=== PATIENT | female | born 1930 | race Two or more races ===

== ENCOUNTER 2017-05-13 17:22 | Emergency (ER) | payer MEDICARE, MEDICAID ==
[~2017-05-13] VITALS: Ht 162.6 cm; Wt 56.7 kg
[~2017-05-13 17:22] MED LIST: AMLODIPINE BESYL5 MG PO; AZITHROMYCIN250 MG PO
[2017-05-13 18:28] VITALS: BP 148/68
[2017-05-13] MEDS ORDERED: LIPITOR10 MG ORAL (18:31)
[2017-05-13] MEDS ORDERED: PROSOM2 MG ORAL (18:31)
[2017-05-13] MEDS ORDERED: LISINOPRIL5 MG ORAL (18:31)
--- NOTE | 2017-05-13 18:39 | Emergency Room Report ---
History of Present Illness General Chief Complaint: Diarrhea Source: Family Member Present Illness HPI Patient has a history of diabetes and is care for home by her daughter. Patient develop acute onset of nausea associated with diarrhea and abdominal discomfort over last few days. Patient does not remember eating anything out of the ordinary. Patient has history dementia and apparently consumes grinded coffee beans at times which could be upsetting her stomach. Patient also apparently has foul-smelling urine according to the daughter. The daughter would prefer that the patient not be admitted. No other complaints are noted. Patient denies any chest pain shortness breath fever cough or any nose. No other modifying factors. No other associated signs and symptoms. No other complaints were noted. Allergies: Coded Allergies: PENICILLINS (Verified Allergy, Mild, HIVES, 10/26/10) Patient History Past Medical History: HTN Past Surgical History: none Pertinent Family History: none Social History: Denies: alcohol use, drug use, smoking Last Menstrual Period: N/A Reviewed Nursing Documentation: PMH: Agreed, PSxH: Agreed Nursing Documentation-PMH Hx Hypertension: Yes Review of Systems All Other Systems: negative except mentioned in HPI Physical Exam Vital Signs Date Time Temp Pulse Resp B/P Pulse Ox O2 Delivery O2 Flow Rate FiO2 05/13/17 17:29 98.4 83 16 152/72 95 05/13/17 18:28 Room Air Sp02 EP Interpretation: reviewed, normal General Appearance: normal inspection, well appearing, no apparent distress, alert Head: atraumatic Eyes: bilateral eye normal inspection ENT: normal ENT inspection, hearing grossly normal, normal voice Neck: normal inspection, full range of motion, supple, no bony tend Respiratory: normal inspection, lungs clear, normal breath sounds, no respiratory distress, no retraction, no wheezing Cardiovascular #1: regular rate, rhythm, no edema Gastrointestinal: normal inspection, normal bowel sounds, non tender, soft, no guarding, no hernia Genitourinary: no CVA tenderness Musculoskeletal: normal inspection, back normal, normal range of motion Neurologic: normal inspection, alert, responsive, speech normal Psychiatric: normal inspection, depressed affect Skin: normal inspection, normal color, no rash Medical Decision Making Diagnostic Impression: Primary Impression: Diarrhea Additional Impressions: Enteritis UTI (urinary tract infection) ER Course Patient presents emergency department today complaining of diarrhea and dysuria. Differential diagnoses include urinary tract infection, gastroenteritis, gastritis, colitis just to name a few. Patient laboratory workup showed a slight elevation white blood cell count. Given patient's advanced age CT scan was performed which was noted to be positive for enteritis. Patient laboratory workup is consistent with UTI as well. Therefore patient was given a prescription for Cipro. Recommend close outpatient followup.Patient is advised to follow up with primary doctor in 2-3 days and return the emergency room for any worsening symptoms and as needed. Labs Test 05/13/17 17:47 White Blood Count 13.3 K/UL (4.8-10.8) Red Blood Count 3.79 M/UL (4.20-5.40) Hemoglobin 12.2 G/DL (12.0-16.0) Hematocrit 34.9 % (37.0-47.0) Mean Corpuscular Volume 92 FL (80-99) Mean Corpuscular Hemoglobin 32.1 PG (27.0-31.0) Mean Corpuscular Hemoglobin Concent 34.8 G/DL (32.0-36.0) Red Cell Distribution Width 12.1 % (11.6-14.8) Platelet Count 236 K/UL (150-450) Mean Platelet Volume 7.0 FL (6.5-10.1) Neutrophils (%) (Auto) 76.6 % (45.0-75.0) Lymphocytes (%) (Auto) 11.4 % (20.0-45.0) Monocytes (%) (Auto) 11.3 % (1.0-10.0) Eosinophils (%) (Auto) 0.2 % (0.0-3.0) Basophils (%) (Auto) 0.5 % (0.0-2.0) Urine Color Yellow Urine Appearance Clear Urine pH 5 (4.5-8.0) Urine Specific [place] 1.020 (1.005-1.035) Urine Protein 1+ (NEGATIVE) Urine Glucose (UA) Negative (NEGATIVE) Urine Ketones Negative (NEGATIVE) Urine Occult Blood 2+ (NEGATIVE) Urine Nitrite Negative (NEGATIVE) Urine Bilirubin Negative (NEGATIVE) Urine Urobilinogen Normal MG/DL (0.0-1.0) Urine Leukocyte Esterase 2+ (NEGATIVE) Urine RBC 5-10 /HPF (0 - 2) Urine WBC 5-10 /HPF (0 - 2) Urine Squamous Epithelial Cells Few /LPF (NONE/OCC) Urine Bacteria Few /HPF (NONE) Sodium Level 132 mEQ/L (135-145) Potassium Level 3.7 mEQ/L (3.4-4.9) Chloride Level 97 mEQ/L (98-107) Carbon Dioxide Level 21 mEQ/L (20-30) Anion Gap 14 (5-15) Blood Urea Nitrogen 15 mg/dL (7-23) Creatinine 0.7 mg/dL (0.5-0.9) Estimat Glomerular Filtration Rate mL/min (>60) Glucose Level 157 mg/dL (74-106) Calcium Level 9.3 mg/dL (8.6-10.2) Total Bilirubin 0.6 mg/dL (0.0-1.2) Aspartate Amino Transf (AST/SGOT) 15 U/L (5-40) Alanine Aminotransferase (ALT/SGPT) 12 U/L (3-33) Alkaline Phosphatase 56 U/L (35-104) Total Protein 7.3 g/dL (6.6-8.7) Albumin 4.4 g/dL (3.5-5.2) Globulin 2.9 g/dL Albumin/Globulin Ratio 1.5 (1.0-2.7) Lipase 23 U/L (< 60) EKG Diagnostic Results Rate: normal Rhythm: NSR ST Segments: other - left bundle branch block Rhythm Strip Diag. Results EP Interpretation: yes Rate: 80s CT/MRI/US Diagnostic Results CT/MRI/US Diagnostic Results : Imaging Test Ordered: CT abdomen and pelv positive for enteritis Last Vital Signs Date Time Temp Pulse Resp B/P Pulse Ox O2 Delivery O2 Flow Rate FiO2 05/13/17 18:28 98.4 19 148/68 97 Room Air 05/13/17 17:29 83 Status: improved Disposition: HOME, SELF-CARE Condition: Stable Scripts Ciprofloxacin Hcl* (CIPROFLOXACIN HCL*) 500 Mg Tablet 500 MG ORAL Q12H for 7 Days, #14 TAB 0 Refills Prov: KEKE MEREDITH M.D. 05/13/17 Referrals: NON PHYSICIAN (PCP) KEKE MEREDITH M.D. May 13, 2017 18:39
[2017-05-13 18:41] LABS: BASOPHILS % (AUTO) 0.5 % (0.0-2.0); EOSINOPHILS % (AUTO) 0.2 % (0.0-3.0); LYMPHOCYTES % (AUTO) 11.4 % (20.0-45.0); MEAN CORPUSCULAR HEMOGLOBIN 32.1 PG (27.0-31.0); MEAN CORPUSCULAR HGB CONC 34.8 G/DL (32.0-36.0); MEAN CORPUSCULAR VOLUME 92 FL (80-99); MONOCYTES % (AUTO) 11.3 % (1.0-10.0); NEUTROPHILS % (AUTO) 76.6 % (45.0-75.0); PLATELET COUNT 236 K/UL (150-450); RED BLOOD COUNT 3.79 M/UL (4.20-5.40); RED CELL DISTRIBUTION WIDTH 12.1 % (11.6-14.8); WHITE BLOOD COUNT 13.3 K/UL (4.8-10.8)
[2017-05-13 18:43] LABS: APPEARANCE,URINE CLEAR; KETONES,URINE NEGATIVE (NEGATIVE); LEUKOCYTE ESTERASE ,URINE 2+ (NEGATIVE); NITRITE,URINE NEGATIVE (NEGATIVE); PH,URINE 5 (4.5-8.0); PROTEIN,URINE 1+ (NEGATIVE); UROBILINOGEN,URINE NORMAL MG/DL (0.0-1.0)
[2017-05-13 18:54] LABS: BACTERIA,URINE FEW /HPF; SQUAMOUS EPITHELIAL CELL,UR FEW /LPF (NONE/OCC)
[2017-05-13 19:01] LABS: ALANINE AMINOTRANSFERASE 12 U/L (3-33); ALBUMIN/GLOBULIN RATIO 1.5 (1.0-2.7); ANION GAP 14 (5-15); ASPARTATE AMINO TRANSFERASE 15 U/L (5-40); CALCIUM 9.3 mg/dL (8.6-10.2); CARBON DIOXIDE 21 mEQ/L (20-30); CHLORIDE 97 mEQ/L (98-107); CREATININE 0.7 mg/dL (0.5-0.9); HEMOLYSIS 6; LIPASE 23 U/L (< 60); POTASSIUM 3.7 mEQ/L (3.4-4.9); SODIUM 132 mEQ/L (135-145); TOTAL PROTEIN 7.3 g/dL (6.6-8.7)
[2017-05-13] MEDS ORDERED: CIPROFLOXACIN500 M2 ORAL (20:28)
[2017-05-13] MEDS ORDERED: Ciprofloxacin 500mg tab ORAL ONE (20:45)
[2017-05-13 21:50] VITALS: BP 135/84
--- NOTE | 2017-05-14 10:52 | Diagnostic Imaging Report ---
Indication: Abdominal pain Technique: Continuous helical transaxial imaging of the abdomen and pelvis was obtained from the lung bases to the pubic symphysis. No intravenous contrast was administered. Coronal 2-D reformats were also obtained. Total Dose length Product (DLP): [address] Dose Index Volume (CTDIvol): 10.5 mGy Comparison: none Findings: Basilar parenchymal densities at the lung bases likely represent atelectasis. Hiatal hernia noted. Some hypodensities demonstrated in the liver, nonspecific. Possibility of mass or metastatic disease not excluded. Cystic focus demonstrated at the junction of the head and body of the pancreas measuring 2 CM. Second cystic focus 1.7 CM within the head of the pancreas demonstrated. Findings are nonspecific, or further evaluation. Differential includes cystic neoplasm. Small multiple hernia containing fat demonstrated. Atrophic there are moderately calcified uterus noted. Fluid-filled loops of small bowel with mild distention noted in a diffuse fashion. Consider enteritis. There is a probable small right inguinal hernia containing fat. Generalized osteopenia demonstrated. The appendix is seen and appears normal. Diverticulosis of the colon demonstrated. There is no definite diverticulitis. There is narrowing of intervertebral discs and accompanying endplate osteophyte formation. Hypertrophied facet joints also demonstrated. Bones are osteopenic. Impression: Fluid-filled and mildly distended small bowel demonstrated. Consider enteritis. Basilar atelectasis. Hypodensities in the liver nonspecific. These be cystic or solid and not evaluated adequately on this exam. Hypodensities within the pancreas as described above. Disregard further evaluation with contrast-enhanced MR or CT. Cystic neoplasm not excluded. Atherosclerotic disease Osteopenia Spondylosis Normal appendix Diverticulosis of the colon. Small umbilical hernia containing fat. Probable small right inguinal hernia containing fat. Dr. monzon has communicated the preliminary results to the Emergency Department. There are no significant discrepancies. The CT scanner at [facility] is accredited by the [employer] and the scans are performed using dose optimization techniques as appropriate to a performed exam including Automatic Exposure control.
== END 2017-05-13 21:52 | disposition home or self-care (01) ==
LOC: EMR 18:04
DX: K52.9 Noninfective gastroenteritis and colitis, unspecified (principal); N39.0 Urinary tract infection, site not specified; I10 Essential (primary) hypertension; Z88.0 Allergy status to penicillin; M85.80 Other specified disorders of bone density and structure, unspecified site; K57.30 Diverticulosis of large intestine without perforation or abscess without bleeding; K42.9 Umbilical hernia without obstruction or gangrene
CPT/HCPCS: 36415; 74176; 80053; 81003; 83690; 85025; 93005; 96374; 99284; J2405

== ENCOUNTER 2019-09-04 11:56 | Emergency (ER) | payer MEDICARE, MEDICAID ==
[~2019-09-04] VITALS: Ht 160 cm; Wt 54.9 kg
[~2019-09-04 11:56] MED LIST changes: +CIPROFLOXACIN500 M2 ORAL; +LIPITOR10 MG ORAL; +LISINOPRIL5 MG ORAL; +PROSOM2 MG ORAL
[2019-09-04 12:21] VITALS: BP 180/77
[2019-09-04 13:03] LABS: APPEARANCE,URINE CLEAR; BILIRUBIN, URINE NEGATIVE (NEGATIVE); COLOR,URINE PALE YELLOW; GLUCOSE, URINE (UA) NEGATIVE (NEGATIVE); KETONES,URINE NEGATIVE (NEGATIVE); LEUKOCYTE ESTERASE ,URINE NEGATIVE (NEGATIVE); NITRITE,URINE NEGATIVE (NEGATIVE); PH,URINE 7 (4.5-8.0); PROTEIN,URINE NEGATIVE (NEGATIVE); UROBILINOGEN,URINE NORMAL MG/DL (0.0-1.0)
[2019-09-04 13:04] LABS: BASOPHILS % (AUTO) 1.5 % (0.0-2.0); EOSINOPHILS % (AUTO) 5.1 % (0.0-3.0); HEMATOCRIT 33.7 % (37.0-47.0); HEMOGLOBIN 11.3 G/DL (12.0-16.0); MEAN CORPUSCULAR VOLUME 86 FL (80-99); MONOCYTES % (AUTO) 11.3 % (1.0-10.0); NEUTROPHILS % (AUTO) 51.2 % (45.0-75.0); PLATELET COUNT 278 K/UL (150-450); RED BLOOD COUNT 3.94 M/UL (4.20-5.40); RED CELL DISTRIBUTION WIDTH 12.1 % (11.6-14.8); WHITE BLOOD COUNT 6.9 K/UL (4.8-10.8)
[2019-09-04 13:13] LABS: ANION GAP 3 mmol/L (5-15); BLOOD UREA NITROGEN 8 mg/dL (7-18); CALCIUM 8.8 MG/DL (8.5-10.1); CARBON DIOXIDE 29 MMOL/L (21-32); CHLORIDE 97 MMOL/L (98-107); CREATININE 0.6 MG/DL (0.55-1.30); SODIUM 129 MMOL/L (136-145)
[2019-09-04 13:18] LABS: ALANINE AMINOTRANSFERASE 22 U/L (12-78); ALBUMIN 3.7 G/DL (3.4-5.0); ALBUMIN/GLOBULIN RATIO 1.2 (1.0-2.7); ALKALINE PHOSPHATASE 75 U/L (46-116); ASPARTATE AMINO TRANSFERASE 15 U/L (15-37); BILIRUBIN,TOTAL 0.4 MG/DL (0.2-1.0)
--- NOTE | 2019-09-04 13:43 | Emergency Room Report ---
History of Present Illness General Chief Complaint: Female Urogenital Problems Source: Patient, Family Member Present Illness HPI This patient is accompanied by her daughter. She is concerned about 2 things. She states that the patient has had a wound on her left ankle for several years. She states she has been seen by multiple different doctors and she has had cream applications but nothing seems to cure the wound. She denies fever chills. She denies nausea or vomiting. She has abdominal pain. She also states that she noted that she had been urinating more frequently over the past few days it. She was concerned that she could have a urinary tract infection because she gets them regularly. Patient herself has no complaints. There are no other complaints by the daughter. Allergies: Coded Allergies: No Known Allergies (Unverified , 09/04/19) Patient History Past Medical History: see triage record, HTN, other - OA Social History: Denies: smoking, alcohol use, drug use Reviewed Nursing Documentation: PMH: Agreed; PSxH: Agreed Nursing Documentation-PMH Past Medical History: No History, Except For Hx Hypertension: Yes Review of Systems All Other Systems: negative except mentioned in HPI Physical Exam Vital Signs Date Time Temp Pulse Resp B/P (MAP) Pulse Ox O2 Delivery O2 Flow Rate FiO2 09/04/19 12:00 98.1 66 16 180/77 (111) 97 Room Air Sp02 EP Interpretation: reviewed, normal General Appearance: no apparent distress, alert, GCS 15, non-toxic Head: normocephalic, atraumatic Eyes: bilateral eye normal inspection, bilateral eye PERRL ENT: hearing grossly normal, normal pharynx, no angioedema, normal voice Neck: full range of motion, supple/symm/no masses Respiratory: chest non-tender, lungs clear, normal breath sounds, no respiratory distress, no retraction, no accessory muscle use, speaking full sentences Cardiovascular #1: regular rate, rhythm, no edema Gastrointestinal: normal bowel sounds, non tender, soft, non-distended, no guarding, no rebound Rectal: deferred Musculoskeletal: back normal, normal range of motion, gait/station normal, non- tender Neurologic: alert, motor strength/tone normal, oriented x3, sensory intact, responsive, speech normal Psychiatric: mood/affect normal, no suicidal/homicidal ideation Skin: other - Over the L. latteral malleous: Nickel-sized wound with shallow ulceration. Medical Decision Making Diagnostic Impression: Primary Impression: Venous stasis ulcer Additional Impression: Polyuria ER Course This patient has a venous stasis ulcer on her left lateral malleolus. It is stage II. Likely this is secondary to poor circulation and peripheral arterial disease. There is no evidence of infection. The patient and her daughter were instructed to follow-up with the primary care physician for regular wound care. There is no evidence of a urinary tract infection with a normal urinalysis. Patient's laboratory work-up was noncontributory. The patient did have a slightly low sodium. The daughter was educated to increase sodium in the patient's diet. Patient's blood pressure was elevated in the emergency department, however, the daughter states that this is typical for her when she goes to a physician as she has very high anxiety. She does take blood pressure medications and does not want any further intervention at this time blood pressure. The patient was instructed to follow-up closely the primary care physician. Laboratory Tests Test 09/04/19 12:35 White Blood Count 6.9 K/UL (4.8-10.8) Red Blood Count 3.94 M/UL (4.20-5.40) L Hemoglobin 11.3 G/DL (12.0-16.0) L Hematocrit 33.7 % (37.0-47.0) L Mean Corpuscular Volume 86 FL (80-99) Mean Corpuscular Hemoglobin 28.7 PG (27.0-31.0) Mean Corpuscular Hemoglobin Concent 33.6 G/DL (32.0-36.0) Red Cell Distribution Width 12.1 % (11.6-14.8) Platelet Count 278 K/UL (150-450) Mean Platelet Volume 5.9 FL (6.5-10.1) L Neutrophils (%) (Auto) 51.2 % (45.0-75.0) Lymphocytes (%) (Auto) 31.0 % (20.0-45.0) Monocytes (%) (Auto) 11.3 % (1.0-10.0) H Eosinophils (%) (Auto) 5.1 % (0.0-3.0) H Basophils (%) (Auto) 1.5 % (0.0-2.0) Urine Color Pale yellow Urine Appearance Clear Urine pH 7 (4.5-8.0) Urine Specific [place] 1.005 (1.005-1.035) Urine Protein Negative (NEGATIVE) Urine Glucose (UA) Negative (NEGATIVE) Urine Ketones Negative (NEGATIVE) Urine Blood Negative (NEGATIVE) Urine Nitrite Negative (NEGATIVE) Urine Bilirubin Negative (NEGATIVE) Urine Urobilinogen Normal MG/DL (0.0-1.0) Urine Leukocyte Esterase Negative (NEGATIVE) Sodium Level 129 MMOL/L (136-145) L Potassium Level 4.0 MMOL/L (3.5-5.1) Chloride Level 97 MMOL/L (98-107) L Carbon Dioxide Level 29 MMOL/L (21-32) Anion Gap 3 mmol/L (5-15) L Blood Urea Nitrogen 8 mg/dL (7-18) Creatinine 0.6 MG/DL (0.55-1.30) Estimate Glomerular Filtration Rate mL/min (>60) Glucose Level 106 MG/DL (74-106) Calcium Level 8.8 MG/DL (8.5-10.1) Total Bilirubin 0.4 MG/DL (0.2-1.0) Aspartate Amino Transferase (AST) 15 U/L (15-37) Alanine Aminotransferase (ALT) 22 U/L (12-78) Alkaline Phosphatase 75 U/L (46-116) Total Protein 6.9 G/DL (6.4-8.2) Albumin 3.7 G/DL (3.4-5.0) Globulin 3.2 g/dL Albumin/Globulin Ratio 1.2 (1.0-2.7) Last Vital Signs Date Time Temp Pulse Resp B/P (MAP) Pulse Ox O2 Delivery O2 Flow Rate FiO2 09/04/19 12:21 98.1 110 16 180/77 97 Room Air Status: improved Disposition: HOME, SELF-CARE Condition: Improved Referrals: NOT CHOSEN IPA/,REFERRING (PCP) Millie Lloyd DO Sep 04, 2019 13:43
[2019-09-04 13:54] VITALS: BP 148/75
== END 2019-09-04 13:52 | disposition home or self-care (01) ==
LOC: EMR 12:40
DX: I83.023 Varicose veins of left lower extremity with ulcer of ankle (principal); R35.8 Other polyuria; R10.9 Unspecified abdominal pain; I10 Essential (primary) hypertension; M19.90 Unspecified osteoarthritis, unspecified site
CPT/HCPCS: 36415; 80053; 81003; 85025; 99283